=== PATIENT | female | born 1990 | race Caucasian/White ===

== ENCOUNTER 2020-11-27 10:13 | Inpatient (IN) | payer BC ==
[~2020-11-27 10:13] MED LIST: Bupivacaine 0.25% 10 ML SDV ONE
[2020-11-27] MEDS ORDERED: Ondansetron 4 MG/2 ML SDV IVPUSH PRN (10:33)
[2020-11-27] MEDS ORDERED: Nalbuphine 10 MG/1 ML Vial IVPUSH PRN (10:33)
[2020-11-27] MEDS ORDERED: Sodium Chloride 0.9% 10 ML Syringe FLUSH PRN (10:33)
[2020-11-27] MEDS ORDERED: Oxytocin/Lactated Ringers 10 UNIT/1,000 ML BAG IV SCH ×2 (10:45)
[2020-11-27] MEDS: Lactated Ringers 1,000 ML IV SCH ×4 (10:54→16:16)
[2020-11-27] MEDS ORDERED: fentaNYL 100 MCG/2 ML SDV EPIDUR PRN (10:57)
[2020-11-27] MEDS ORDERED: Bupivacaine/fentaNYL/NS 100 ML Bag EPIDUR PRN (10:57)
[2020-11-27] MEDS ORDERED: diphenhydrAMINE 50 MG/ML SDV IVPUSH PRN (10:57)
[2020-11-27] MEDS ORDERED: ePHEDrine 50 MG/ML SDV IVPUSH PRN (10:57)
[2020-11-27] MEDS ORDERED: fentaNYL 100 MCG/2 ML SDV ONE (11:03)
--- NOTE | 2020-11-27 11:29 | PCM.PREANE ---
Preanesthetic Assessment - Procedure Proposed Procedure: calvin - Anesthesia/Transfusion/Family Hx Anesthesia History: Prior Anesthesia Without Reaction Family History of Anesthesia Reaction: No Transfusion History: No Prior Transfusion(s) - Review of Systems General: No Symptoms Pulmonary: No Symptoms Cardiovascular: No Symptoms Gastrointestinal: No Symptoms Neurological: No Symptoms Other: Reports: None - Physical Assessment Vital Signs: Last Vital Signs Temp 97.1 F 11/27/20 10:25 Pulse 122 H 11/27/20 10:25 Resp 18 11/27/20 10:25 BP 127/80 11/27/20 10:25 Pulse Ox 100 11/27/20 10:25 Height: 5 ft 4 in Weight: 97.522 kg ASA Class: 2 Mental Status: Alert & Oriented x3 Airway Class: Mallampati = 1 Dentition: Reports: Normal Dentition Thyro-Mental Finger Breadths: 3 Mouth Opening Finger Breadths: 3 ROM/Head Extension: Full Lungs: Clear to Auscultation, Normal Respiratory Effort Cardiovascular: Regular Rate, Regular Rhythm - Lab Values: Laboratory Last Values WBC 11.63 K/mm3 (3.98-10.04) H 11/27/20 10:55 RBC 4.54 M/mm3 (3.98-5.22) 11/27/20 10:55 Hgb 12.1 gm/dl (11.2-15.7) 11/27/20 10:55 Hct 36.9 % (34.1-44.9) 11/27/20 10:55 MCV 81.3 fl (79.4-94.8) 11/27/20 10:55 MCH 26.7 pg (25.6-32.2) 11/27/20 10:55 MCHC 32.8 g/dl (32.2-35.5) 11/27/20 10:55 RDW Std Deviation 40.9 fL (36.4-46.3) 11/27/20 10:55 Plt Count 191 K/mm3 (182-369) 11/27/20 10:55 MPV 10.9 fl (9.4-12.3) 11/27/20 10:55 Neut % (Auto) 77.1 % (34.0-71.1) H 11/27/20 10:55 Lymph % (Auto) 16.4 % (19.3-51.7) L 11/27/20 10:55 Delta % (Auto) 5.7 % (4.7-12.5) 11/27/20 10:55 Eos % (Auto) 0.3 (0.7-5.8) L 11/27/20 10:55 Baso % (Auto) 0.2 % (0.1-1.2) 11/27/20 10:55 Neut # (Auto) 8.96 K/mm3 (1.56-6.13) H 11/27/20 10:55 Lymph # (Auto) 1.91 K/mm3 (1.18-3.74) 11/27/20 10:55 Delta # (Auto) 0.66 K/mm3 (0.24-0.36) H 11/27/20 10:55 Eos # (Auto) 0.04 K/mm3 (0.04-0.36) 11/27/20 10:55 Baso # (Auto) 0.02 K/mm3 (0.01-0.08) 11/27/20 10:55 SARS-CoV-2 RNA (EULALIA) Negative (NEGATIVE) 11/27/20 10:30 - Allergies Allergies/Adverse Reactions: Allergies Allergy/AdvReac Type Severity Reaction Status Date / Time No Known Allergies Allergy Verified 11/27/20 10:27 - Blood Blood Available: No - Acknowledgements Anesthesia Type Planned: Epidural Pt an Appropriate Candidate for the Planned Anesthesia: Yes Alternatives and Risks of Anesthesia Discussed w Pt/Guardian: Yes Pt/Guardian Understands and Agrees with Anesthesia Plan: Yes PreAnesthesia Questionnaire Cardiovascular History: Reports: None Respiratory History: Reports: None : 1 Para: 0 - Past Surgical History Musculoskeletal Surgical History: Reports: Other (See Below) (bunionectomy both feet) - SUBSTANCE USE Tobacco Use Status *Q: Never Tobacco User Tobacco Use Within Last Twelve Months: No Second Hand Smoke Exposure: No Days Per Week of Alcohol Use: 0 Recreational Drug Use History: No - CURRENT (IN HOUSE) MEDS Current Meds: Current Medications Diphenhydramine HCl (Benadryl) 25 mg IVPUSH Q6H PRN PRN Reason: pruritis Ephedrine Sulfate (Ephedrine Sulfate) 5 mg IVPUSH ASDIRECTED PRN PRN Reason: Hypotension Fentanyl (Sublimaze) 100 mcg EPIDUR Q3H PRN PRN Reason: Pain Last Admin: 11/27/20 11:04 Dose: 100 mcg Documented by: Fentanyl/Bupivacaine HCl (Fentanyl/Bupivacaine/Ns 2 Mcg-0.125% 100 Ml) 100 ml EPIDUR ASDIRECTED PRN PRN Reason: Pain Last Admin: 11/27/20 11:04 Dose: 100 ml Documented by: Oxytocin/Lactated Ringer's (Pitocin In Lr 10 Units/1,000 Ml) 10 unit in 1,000 mls @ 12 mls/hr IV TITRATE GHANSHYAM; Protocol Oxytocin/Lactated Ringer's (Pitocin In Lr 10 Units/1,000 Ml) 10 unit in 1,000 mls @ 500 mls/hr IV .CONTINUOUS GHANSHYAM Lactated Ringer's (Ringers, Lactated) 1,000 mls @ 100 mls/hr IV ASDIRECTED GHANSHYAM Last Admin: 11/27/20 11:14 Dose: 100 mls/hr Documented by: Nalbuphine HCl (Nubain) 10 mg IVPUSH Q2H PRN PRN Reason: Pain Ondansetron HCl (Zofran) 4 mg IVPUSH Q4H PRN PRN Reason: Nausea/Vomiting Sodium Chloride (Saline Flush) 10 ml FLUSH ASDIRECTED PRN PRN Reason: Keep Vein Open Discontinued Medications Fentanyl (Sublimaze) Confirm Administered Dose 100 mcg .ROUTE .[facility] ONE Stop: 11/27/20 11:04 Last Admin: 11/27/20 11:14 Dose: Not Given Documented by:
--- NOTE | 2020-11-27 11:55 | PCM.LDHP ---
L&D History of Present Illness - General Date of Service: 11/27/20 Admit Problem/Dx: Patient Status Order with Admit Dx/Problem 11/27/20 10:33 Patient Status [ADT] Routine Admission Diagnosis/Problem Admission Diagnosis/Problem - History of Present Illness Introduction:: 29 year old at 40w1 here with SROM and labor. Doing well. PNC with Dr. Salmeron without complications other than some infertility although this was spontaneously conceived. Pain Score: 8 - Related Data Allergies/Adverse Reactions: Allergies Allergy/AdvReac Type Severity Reaction Status Date / Time No Known Allergies Allergy Verified 11/27/20 10:27 Past Medical History Cardiovascular History: Reports: None Respiratory History: Reports: None - Past Surgical History Musculoskeletal Surgical History: Reports: Other (See Below) (bunionectomy both feet) Social & Family History - Tobacco Use Tobacco Use Status *Q: Never Tobacco User Second Hand Smoke Exposure: No - Alcohol Use Days Per Week of Alcohol Use: 0 - Recreational Drug Use Recreational Drug Use: No H&P Review of Systems - Review of Systems: Review Of Systems: See Below General: Reports: No Symptoms HEENT: Reports: No Symptoms Pulmonary: Reports: No Symptoms Cardiovascular: Reports: No Symptoms Gastrointestinal: Reports: No Symptoms Genitourinary: Reports: No Symptoms Musculoskeletal: Reports: No Symptoms Skin: Reports: No Symptoms Psychiatric: Reports: No Symptoms Neurological: Reports: No Symptoms Hematologic/Lymphatic: Reports: No Symptoms Immunologic: Reports: No Symptoms L&D Exam - Exam Exam: See Below - Vital Signs Vital Signs: Last Vital Signs Temp 36.2 C 11/27/20 10:25 Pulse 122 H 11/27/20 10:25 Resp 18 11/27/20 10:25 BP 127/80 11/27/20 10:25 Pulse Ox 100 11/27/20 10:25 Weight: 97.522 kg - OB Specific Contraction Intensity: Moderate to Strong Movement: Active Heart Tones: Present Heart Rate (FHR) Variability: Moderate (6-25 bmp) Presentation: Vertex - Beltran Score Beltran Score Cervix Position: Anterior Beltran Score Effacement: 51-70% Beltran Score Dilation: 3-4 cm Beltran Score Infant's Station: -2 - Exam General: Alert, Oriented HEENT: PERRLA, Conjunctiva Clear, EACs Clear, EOMI, Hearing Intact, Mucosa Moist & Gunter, Nares Patent, Normal Nasal Septum, Posterior Pharynx Clear, TMs Clear Neck: Supple, Trachea Midline Lungs: Clear to Auscultation, Normal Respiratory Effort Cardiovascular: Regular Rate, Regular Rhythm GI/Abdominal Exam: Normal Bowel Sounds, Soft, Non-Tender, No Organomegaly, No Distention, No Abnormal Bruit, No Mass, Pelvis Stable Rectal Exam: Normal Exam Back Exam: Normal Inspection, Full Range of Motion Extremities: Normal Inspection, Normal Range of Motion, Non-Tender, No Pedal Edema, Normal Capillary Refill Skin: Warm, Dry, Intact Neurological: Cranial Nerves Intact, Reflexes Equal Bilateral Psychiatric: Alert, Normal Affect, Normal Mood - Patient Data Lab Results Last 24 hrs: Laboratory Results - last 24 hr 11/27/20 11/27/20 Range/Units 10:30 10:55 WBC 11.63 H (3.98-10.04) K/mm3 RBC 4.54 (3.98-5.22) M/mm3 Hgb 12.1 (11.2-15.7) gm/dl Hct 36.9 (34.1-44.9) % MCV 81.3 (79.4-94.8) fl MCH 26.7 (25.6-32.2) pg MCHC 32.8 (32.2-35.5) g/dl RDW Std Deviation 40.9 (36.4-46.3) fL Plt Count 191 (182-369) K/mm3 MPV 10.9 (9.4-12.3) fl Neut % (Auto) 77.1 H (34.0-71.1) % Lymph % (Auto) 16.4 L (19.3-51.7) % [place] % (Auto) 5.7 (4.7-12.5) % Eos % (Auto) 0.3 L (0.7-5.8) Baso % (Auto) 0.2 (0.1-1.2) % Neut # (Auto) 8.96 H (1.56-6.13) K/mm3 Lymph # (Auto) 1.91 (1.18-3.74) K/mm3 [place] # (Auto) 0.66 H (0.24-0.36) K/mm3 Eos # (Auto) 0.04 (0.04-0.36) K/mm3 Baso # (Auto) 0.02 (0.01-0.08) K/mm3 SARS-CoV-2 RNA (EULALIA) Negative (NEGATIVE) Result Diagrams: 11/27/20 10:55 Problem List Initiated/Reviewed/Updated: Yes Orders Last 24hrs: Active Orders 24 hr Category Date Time Status Patient Status [ADT] Routine ADT 11/27/20 10:33 Active Activity as Tolerated [RC] PFP Care 11/27/20 10:33 Active Communication Order [RC] ASDIRECTED Care 11/27/20 10:33 Active Heart Tones [RC] ASDIRECTED Care 11/27/20 10:34 Active Notify Provider [RC] ASDIRECTED Care 11/27/20 10:57 Active Notify Provider [RC] PFP Care 11/27/20 10:33 Active Notify Provider [RC] PRN Care 11/27/20 10:33 Active Peripheral IV Care [RC] . DIRECTED Care 11/27/20 10:34 Active Pump Management, Intrathecal [RC] ASDIRECTED Care 11/27/20 10:34 Active Vital Signs [RC] PER UNIT ROUTINE Care 11/27/20 10:33 Active Regular Diet [DIET] Diet 11/27/20 Breakfast Active RAPID PLASMA REAGIN,RPR [CHEM] Routine Lab 11/27/20 10:55 Received Bupivacaine/fentaNYL/NS [fentaNYL/Bupivacaine/NS 2 MCG- Med 11/27/20 10:57 Active 0.125% 100 ML] 100 ml EPIDUR ASDIRECTED PRN Lactated Ringers [Ringers, Lactated] 1,000 ml Med 11/27/20 10:45 Active IV ASDIRECTED Nalbuphine [Nubain] Med 11/27/20 10:33 Active 10 mg IVPUSH Q2H PRN Ondansetron [Zofran] Med 11/27/20 10:33 Active 4 mg IVPUSH Q4H PRN Oxytocin/Lactated Ringers [Pitocin in LR 10 Units/1,000 Med 11/27/20 10:45 Active ML] 10 unit in 1,000 ml IV .CONTINUOUS Oxytocin/Lactated Ringers [Pitocin in LR 10 Units/1,000 Med 11/27/20 10:45 Active ML] 10 unit in 1,000 ml IV TITRATE Sodium Chloride 0.9% [Saline Flush] Med 11/27/20 10:33 Active 10 ml FLUSH ASDIRECTED PRN diphenhydrAMINE [Benadryl] Med 11/27/20 10:57 Active 25 mg IVPUSH Q6H PRN ePHEDrine [ePHEDrine sulfate] Med 11/27/20 10:57 Active 5 mg IVPUSH ASDIRECTED PRN fentaNYL [Sublimaze] Med 11/27/20 10:57 Active 100 mcg EPIDUR Q3H PRN Electronic Heart Tones Ext w TOCO [WOMSER] Oth 11/27/20 10:33 Ordered Routine Electronic Heart Tones Internal [WOMSER] Per Unit Oth 11/27/20 10:33 Ordered Routine Peripheral IV Insertion Adult [OM.PC] Routine Oth 11/27/20 10:33 Ordered Resuscitation Status Routine Resus Stat 11/27/20 10:33 Ordered Medication Orders Diphenhydramine HCl (Benadryl) 25 mg IVPUSH Q6H PRN PRN Reason: pruritis Ephedrine Sulfate (Ephedrine Sulfate) 5 mg IVPUSH ASDIRECTED PRN PRN Reason: Hypotension Fentanyl (Sublimaze) 100 mcg EPIDUR Q3H PRN PRN Reason: Pain Last Admin: 11/27/20 11:04 Dose: 100 mcg Documented by: TROY Fentanyl/Bupivacaine HCl (Fentanyl/Bupivacaine/Ns 2 Mcg-0.125% 100 Ml) 100 ml EPIDUR ASDIRECTED PRN PRN Reason: Pain Last Admin: 11/27/20 11:04 Dose: 100 ml Documented by: TROY Oxytocin/Lactated Ringer's (Pitocin In Lr 10 Units/1,000 Ml) 10 unit in 1,000 mls @ 12 mls/hr IV TITRATE GHANSHYAM; Protocol Oxytocin/Lactated Ringer's (Pitocin In Lr 10 Units/1,000 Ml) 10 unit in 1,000 mls @ 500 mls/hr IV .CONTINUOUS GHANSHYAM Lactated Ringer's (Ringers, Lactated) 1,000 mls @ 100 mls/hr IV ASDIRECTED GHANSHYAM Last Admin: 11/27/20 11:14 Dose: 100 mls/hr Documented by: Infusion: 11/27/20 11:14 Dose: 999 mls/hr Documented by: Admin: 11/27/20 10:54 Dose: 100 mls/hr Documented by: RTOY Nalbuphine HCl (Nubain) 10 mg IVPUSH Q2H PRN PRN Reason: Pain Ondansetron HCl (Zofran) 4 mg IVPUSH Q4H PRN PRN Reason: Nausea/Vomiting Sodium Chloride (Saline Flush) 10 ml FLUSH ASDIRECTED PRN PRN Reason: Keep Vein Open Assessment/Plan Comment:: Term SROM. GBS negative. Opos, rubella immune.
--- NOTE | 2020-11-27 18:49 | PCM.SN.2 ---
- Free Text/Narrative Note: Stage I - Patient presented with SROM and regular contractions. Epidural anesthesia. Progressed to complete with overall reassuring heart tones. Stage II - After pushing 2.5 hours patient expressed exhaustion and desire for assistance. At in OA position +3/5 and station kiwi vacuum placed. With three pulls over 3 contractions to . Vacuum removed. With maternal pushing head delivered. Body and shoulders atraumatically. Viable female, 7#2ox, 8/9 APGARS at 1822. Cord clamped and cut by FOB. Cord blood collected. Stage III - of intact placenta. 3vc. Small 2nd degree laceration repaired with 3-0 vicryl. EBL 350.
[2020-11-27] MEDS ORDERED: Hydrocortisone Acetate 25 MG Supp RECTAL PRN (20:12)
[2020-11-27] MEDS ORDERED: Benzocaine/Menthol 20%-0.5% Spray 56 GM Canister TOP PRN (20:12)
[2020-11-27] MEDS: Witch Hazel Medicated Pads 40/Jar TOP PRN (20:37)
[2020-11-27] MEDS: Ibuprofen 600 MG Tab PO PRN (20:37)
[2020-11-28] MEDS: Docusate Sodium 100 MG Cap PO PRN ×2 (02:51→21:37)
[2020-11-28] MEDS: Ibuprofen 600 MG Tab PO PRN ×2 (02:51→21:34)
--- NOTE | 2020-11-28 08:45 | PCM.PNPP ---
- General Info Date of Service: 11/28/20 Functional Status: Reports: Pain Controlled - Review of Systems General: Reports: No Symptoms HEENT: Reports: No Symptoms Pulmonary: Reports: No Symptoms Cardiovascular: Reports: No Symptoms Gastrointestinal: Reports: No Symptoms Genitourinary: Reports: No Symptoms Musculoskeletal: Reports: No Symptoms Skin: Reports: No Symptoms Neurological: Reports: No Symptoms Psychiatric: Reports: No Symptoms - General Info Date of Service: 11/28/20 - Patient Data Vital Signs - Most Recent: Last Vital Signs Temp 36.9 C 11/28/20 02:26 Pulse 110 H 11/28/20 02:26 Resp 14 11/28/20 02:26 BP 114/84 11/28/20 02:26 Pulse Ox 97 11/28/20 02:26 Weight - Most Recent: 97.522 kg I&O - Last 24 Hours: Intake & Output 11/27/20 11/28/20 11/28/20 22:59 06:59 14:59 Intake Total 1000 Balance 1000 Lab Results - Last 24 Hours: Laboratory Results - last 24 hr 11/27/20 11/27/20 11/27/20 Range/Units 10:30 10:55 10:55 WBC 11.63 H (3.98-10.04) K/mm3 RBC 4.54 (3.98-5.22) M/mm3 Hgb 12.1 (11.2-15.7) gm/dl Hct 36.9 (34.1-44.9) % MCV 81.3 (79.4-94.8) fl MCH 26.7 (25.6-32.2) pg MCHC 32.8 (32.2-35.5) g/dl RDW Std Deviation 40.9 (36.4-46.3) fL Plt Count 191 (182-369) K/mm3 MPV 10.9 (9.4-12.3) fl Neut % (Auto) 77.1 H (34.0-71.1) % Lymph % (Auto) 16.4 L (19.3-51.7) % [place] % (Auto) 5.7 (4.7-12.5) % Eos % (Auto) 0.3 L (0.7-5.8) Baso % (Auto) 0.2 (0.1-1.2) % Neut # (Auto) 8.96 H (1.56-6.13) K/mm3 Lymph # (Auto) 1.91 (1.18-3.74) K/mm3 [place] # (Auto) 0.66 H (0.24-0.36) K/mm3 Eos # (Auto) 0.04 (0.04-0.36) K/mm3 Baso # (Auto) 0.02 (0.01-0.08) K/mm3 RPR Non-reactive (NONREACTIVE) SARS-CoV-2 RNA (EULALIA) Negative (NEGATIVE) Med Orders - Current: Current Medications Benzocaine/Menthol (Dermoplast Pain Relief [place]) 0 gm TOP ASDIRECTED PRN PRN Reason: Perineal Comfort Measure Last Admin: 11/27/20 20:37 Dose: 1 applic Documented by: Docusate Sodium (Colace) 100 mg PO BID PRN PRN Reason: Constipation Last Admin: 11/28/20 02:51 Dose: 100 mg Documented by: Hydrocortisone Acetate (Anucort-Hc) 25 mg RECTAL BID PRN PRN Reason: Hemorrhoid pain Ibuprofen (Motrin) 600 mg PO Q6H PRN PRN Reason: Mild pain or fever Last Admin: 11/28/20 02:51 Dose: 600 mg Documented by: Martin Kruger ([facility]) 1 pad TOP ASDIRECTED PRN PRN Reason: Pain Last Admin: 11/27/20 20:37 Dose: 1 applic Documented by: Discontinued Medications Diphenhydramine HCl (Benadryl) 25 mg IVPUSH Q6H PRN PRN Reason: pruritis Ephedrine Sulfate (Ephedrine Sulfate) 5 mg IVPUSH ASDIRECTED PRN PRN Reason: Hypotension Fentanyl (Sublimaze) 100 mcg EPIDUR Q3H PRN PRN Reason: Pain Last Admin: 11/27/20 11:04 Dose: 100 mcg Documented by: Fentanyl (Sublimaze) Confirm Administered Dose 100 mcg .ROUTE .[facility]-MED ONE Stop: 11/27/20 11:04 Last Admin: 11/27/20 11:14 Dose: Not Given Documented by: Fentanyl/Bupivacaine HCl (Fentanyl/Bupivacaine/Ns 2 Mcg-0.125% 100 Ml) 100 ml EPIDUR ASDIRECTED PRN PRN Reason: Pain Last Admin: 11/27/20 11:04 Dose: 100 ml Documented by: Oxytocin/Lactated Ringer's (Pitocin In Lr 10 Units/1,000 Ml) 10 unit in 1,000 mls @ 12 mls/hr IV TITRATE GHANSHYAM; Protocol Oxytocin/Lactated Ringer's (Pitocin In Lr 10 Units/1,000 Ml) 10 unit in 1,000 mls @ 500 mls/hr IV .CONTINUOUS GHANSHYAM Last Admin: 11/27/20 18:30 Dose: 500 mls/hr Documented by: Lactated Ringer's (Ringers, Lactated) 1,000 mls @ 100 mls/hr IV ASDIRECTED GHANSHYAM Last Admin: 11/27/20 16:16 Dose: 100 mls/hr Documented by: Nalbuphine HCl (Nubain) 10 mg IVPUSH Q2H PRN PRN Reason: Pain Ondansetron HCl (Zofran) 4 mg IVPUSH Q4H PRN PRN Reason: Nausea/Vomiting Sodium Chloride (Saline Flush) 10 ml FLUSH ASDIRECTED PRN PRN Reason: Keep Vein Open - Infant Interaction Disposition, : [place] to Nursery Support Person: - Recovery Exam Fundal Tone: Firm Fundal Level: 1 Fingerbreadths Below Umbilicus Fundal Placement: Midline Lochia Amount: Small Lochia Color: Rubra/Red Perineum Description: Edematous Bladder Status: Voiding Urinary Elimination: Voided - Exam General: Alert, Oriented HEENT: Pupils Equal Neck: Supple Lungs: Clear to Auscultation, Normal Respiratory Effort Cardiovascular: Regular Rate, Regular Rhythm GI/Abdominal Exam: Normal Bowel Sounds, Soft, Non-Tender, No Organomegaly, No Distention, No Abnormal Bruit, No Mass, Pelvis Stable Extremities: Normal Inspection, Normal Range of Motion, Non-Tender, No Pedal Edema, Normal Capillary Refill Wound/Incisions: Healing Well Neurological: No New Focal Deficit Psy/Mental Status: Alert, Normal Affect, Normal Mood - Problem List Review Problem List Initiated/Reviewed/Updated: Yes - My Orders Last 24 Hours: My Active Orders 11/27/20 10:33 Resuscitation Status Routine 11/27/20 20:12 Benzocaine/Menthol [Dermoplast Pain Relief [place]] See Dose Instructions TOP ASDIRECTED PRN Hydrocortisone Acetate [Anucort-HC] 25 mg RECTAL BID PRN Ibuprofen [Motrin] 600 mg PO Q6H PRN witch [place] [Tucks] 1 pad TOP ASDIRECTED PRN Heat Therapy [OM.PC] PRN 11/27/20 20:12 Activity as Tolerated [RC] PER UNIT ROUTINE Vital Signs [RC] 03,,, Assess Lochia [WOMSER] Per Unit Routine Assess Uterine Involution [WOMSER] Per Unit Routine Breast Pump [WOMSER] Per Unit Routine Medication Administration Instruction [OM.PC] Routine Perineal Care [OM.PC] Per Unit Routine Sitz Bath [OM.PC] Per Unit Routine 11/28/20 02:44 Docusate Sodium [Colace] 100 mg PO BID PRN 11/28/20 20:12 Heat Therapy [OM.PC] PRN - Assessment Assessment:: Doing well. Likely home tomorrow - Plan Plan:: Term SROM. GBS negative. Opos, rubella immune.
--- NOTE | 2020-11-28 08:45 | PCM48HPAN ---
Post Anesthesia Note - EVALUATION WITHIN 48HRS OF ANESTHETIC Vital Signs in Normal Range: Yes Patient Participated in Evaluation: Yes Respiratory Function Stable: Yes Airway Patent: Yes Cardiovascular Function Stable: Yes Hydration Status Stable: Yes Pain Control Satisfactory: Yes Mental Status Recovered: Yes Vital Signs: Last Vital Signs Temp 36.9 C 11/28/20 02:26 Pulse 110 H 11/28/20 02:26 Resp 14 11/28/20 02:26 BP 114/84 11/28/20 02:26 Pulse Ox 97 11/28/20 02:26
[2020-11-28] MEDS: Witch Hazel Medicated Pads 40/Jar TOP PRN (13:10)
[2020-11-29] MEDS: Ibuprofen 600 MG Tab PO PRN (04:31)
== END 2020-11-29 11:10 | disposition home or self-care (01) | DRG 560 ==
LOC: JD.OBCHECK 10:13 → JD.OB 10:16 → JD.OBCHECK 10:32 → JD.OB 10:33 → OBSVTOIN 18:22
PROVIDERS: ADMIT Obstetrics & Gynecology; ATTEND Obstetrics & Gynecology
PROC: 10D07Z6 Extraction of Products of Conception, Vacuum, Via Natural or Artificial Opening (ICD-10-PCS; principal; 2020-11-27)
PROC: 0KQM0ZZ Repair Perineum Muscle, Open Approach (ICD-10-PCS; 2020-11-27)
PROC: 3E0R3BZ Introduction of Anesthetic Agent into Spinal Canal, Percutaneous Approach (ICD-10-PCS; 2020-11-27)
PROC: 00HU33Z Insertion of Infusion Device into Spinal Canal, Percutaneous Approach (ICD-10-PCS; 2020-11-27)
DX: O70.1 Second degree perineal laceration during delivery (principal); Z37.0 Single live birth; Z3A.40 40 weeks gestation of pregnancy; Z20.822 Contact with and (suspected) exposure to COVID-19
CPT/HCPCS: 01967; 36415; 51701; 51702; 59025; 85025; 86592; A9270-GY; J2590; J3010; J3490; J7120; U0002

== ENCOUNTER 2022-06-16 10:48 | Emergency (ER) | payer BC ==
[2022-06-16] MEDS ORDERED: Sodium Chloride 0.9% 10 ML Syringe FLUSH PRN (11:28)
[2022-06-16] MEDS ORDERED: Sodium Chloride 0.9% 1,000 ML IV ONE (11:28)
[2022-06-16] MEDS ORDERED: Ondansetron 4 MG/2 ML SDV IVPUSH ONE (11:29)
== END 2022-06-16 14:26 | disposition home or self-care (01) ==
LOC: JD.ED 10:48
DX: O21.9 Vomiting of pregnancy, unspecified (principal); Z3A.13 13 weeks gestation of pregnancy; Z79.899 Other long term (current) drug therapy
CPT/HCPCS: 36415; 80053; 83735; 85025; 96361; 96374; 99283; 99284-25; J2405; J3490; J7030

== ENCOUNTER 2025-08-12 19:04 | Observation (INO) | payer BC ==
[2025-08-12] MEDS ORDERED: Sodium Chloride 0.9% 10 ML Syringe FLUSH PRN (19:46)
[2025-08-12] MEDS ORDERED: Nalbuphine 10 MG/1 ML Vial IVPUSH PRN (19:46)
[2025-08-12] MEDS ORDERED: Ondansetron 4 MG/2 ML SDV IVPUSH PRN (19:46)
[2025-08-12] MEDS ORDERED: Oxytocin/0.9 % Sodium Chloride 30 UNIT/500 ML BAG IV SCH ×2 (20:00)
[2025-08-12] MEDS ORDERED: Lactated Ringers 1,000 ML IV SCH (20:00)
[2025-08-12 20:12] LABS: BASOPHILS ABSOLUTE AUTO 0.0 K/mm3 (0.0-0.2); BASOPHILS PERCENT AUTO 0.5 % (0.0-1.0); EOSINOPHILS ABSOLUTE AUTO 0.1 K/mm3 (0.0-0.4); EOSINOPHILS PERCENT AUTO 0.6 % (0.0-6.0); IMMATURE GRAN ABSOLUTE AUTO 0.06 K/mm3 (0.00-0.05); IMMATURE GRAN PERCENT AUTO 0.7 % (0.0-0.4); LYMPHOCYTES ABSOLUTE AUTO 2.2 K/mm3 (1.0-4.8); LYMPHOCYTES PERCENT AUTO 25.0 % (24.0-44.0); MEAN PLATELET VOLUME 10.1 fl (9.4-12.3); MONOCYTES ABSOLUTE AUTO 0.5 K/mm3 (0.0-0.8); MONOCYTES PERCENT AUTO 5.6 % (0.0-8.0); NEUTROPHILS ABSOLUTE AUTO 6.0 K/mm3 (1.8-7.7); NEUTROPHILS PERCENT AUTO 67.6 % (41.0-71.0); NRBC ABSOLUTE 0.02 (0.00-0.02); NRBC PERCENT 0.2 % (0.0-0.2); PLATELET COUNT,PLT 123 K/mm3 (150-400); RED BLOOD CELL COUNT 4.21 M/mm3 (4.10-5.30); WHITE BLOOD CELL COUNT,WBC 8.79 K/mm3 (3.9-11.3)
[2025-08-12] MEDS: Sodium Chloride 0.9% 10 ML Syringe FLUSH SCH (21:40)
[2025-08-12] MEDS ORDERED: ePHEDrine 50 MG/ML SDV IVPUSH PRN (22:28)
[2025-08-12] MEDS ORDERED: diphenhydrAMINE 50 MG/ML SDV IVPUSH PRN (22:28)
[2025-08-12] MEDS ORDERED: Bupivacaine/fentaNYL/NS 100 ML Bag EPIDUR PRN (22:28)
[2025-08-12] MEDS ORDERED: fentaNYL 100 MCG/2 ML SDV EPIDUR PRN (22:28)
== END 2025-08-13 07:33 | disposition home or self-care (01) ==
LOC: JD.OBCHECK 19:04 → JD.OB 19:46 → JD.OBCHECK 20:41
PROVIDERS: ADMIT Obstetrics & Gynecology; ATTEND Obstetrics & Gynecology
DX: Z34.93 Encounter for supervision of normal pregnancy, unspecified, third trimester (principal); Z3A.39 39 weeks gestation of pregnancy
CPT/HCPCS: 36415; 59025; 85025; 86592; 86850; 86900; 86901; J0290; 96365; 96366; 96376; G0378